=== PATIENT | female | born 1955 | race Caucasian/White ===

== ENCOUNTER 2016-09-06 02:26 | Emergency (ER) | payer SELFPAY | END 2016-09-06 03:18 | disposition home or self-care (01) | LOC: D.ER 02:26 | DX: S62.101A Fracture of unspecified carpal bone, right wrist, initial encounter for closed fracture (principal); W19.XXXA Unspecified fall, initial encounter; Y93.89 Activity, other specified; Y92.89 Other specified places as the place of occurrence of the external cause; F17.200 Nicotine dependence, unspecified, uncomplicated ==

== ENCOUNTER 2016-09-29 05:12 | Day surgery (SDC) | payer SELFPAY ==
[2016-09-28 12:19] LABS: HEMOGLOBIN 13.9 g/dL (12-16); MCH 27.7 pg (26.0-34.0); MCHC 33.1 g/dL (31.0-37.0); MCV 83.8 fL (80.0-100.0); MEAN PLATELET VOLUME 10.4 fL (7.4-10.4); RBC 5.01 10x6/uL (4.00-5.40); RDW 14.8 % (11.5-14.5); WBC 8.5 10x3/uL (4.8-10.8)
[~2016-09-29] VITALS: Ht 170.2 cm; Wt 54.4 kg
[~2016-09-29 05:12] MED LIST: ADVIL200 MG PO; DILAUDID2 MG PO
[2016-09-29 07:33] VITALS: Ht 170.2 cm; Wt 54.4 kg
--- NOTE | 2016-09-29 08:03 | NUR ---
0745- DR. JASON NOTIFIED OF ELEVATED BP, ORDERS RECEIVED. WILL MONITOR AFTER MEDICATION ADMINISTRATION.
--- NOTE | 2016-09-29 08:17 | NUR ---
0805-BP 185/106 DR JASON NOTIFIED NEW ORDER RECEIVED FOR 10 MG OF HYDRALAZINE IV NOW.
[2016-09-29] MEDS ORDERED: MEPERIDINE HCL50 MG PO (10:29)
--- NOTE | 2016-09-29 11:54 | NUR ---
IV DC WITH CATHER TIP INTACT
== END 2016-09-29 12:22 | disposition home or self-care (01) ==
LOC: D.OPS 05:12 → D.PAN 08:45 → D.OPS 08:50
PROVIDERS: Anesthesiology
DX: S52.501A Unspecified fracture of the lower end of right radius, initial encounter for closed fracture (principal)

== ENCOUNTER 2018-12-20 12:43 | Emergency (ER) | payer BC ==
[~2018-12-20] VITALS: Ht 170.2 cm; Wt 53.6 kg
[~2018-12-20 12:43] MED LIST changes: +MEPERIDINE HCL50 MG PO
[2018-12-20 12:46] VITALS: Ht 170.2 cm; Wt 53.6 kg
[2018-12-20 15:46] LABS: BASOPHILS 0.1 % (0-2); EOSINOPHILS 0.6 % (0-7); HEMATOCRIT 36.7 % (36.0-48.0); IMMATURE GRANULOCYTES 0.2 % (0-5); LYMPHOCYTES 14.7 % (15-50); MCH 25.2 pg (26.0-34.0); MCHC 32.7 g/dL (31.0-37.0); MCV 77.1 fL (80.0-100.0); MEAN PLATELET VOLUME 9.8 fL (7.4-10.4); MONOCYTES 5.9 % (2-11); NEUTROPHILS 78.5 % (40-80); PLATELET COUNT 190 10x3/uL (130-400); RBC 4.76 10x6/uL (4.00-5.40); RDW 15.4 % (11.5-14.5); WBC 9.8 10x3/uL (4.8-10.8)
[2018-12-20 16:13] LABS: ALBUMIN 3.4 g/dL (3.4-5.0); ALKALINE PHOSPHATASE 106 U/L (46-116); ALT (SGPT) 21 U/L (10-68); BILIRUBIN - TOTAL 0.23 mg/dL (0.2-1.3); CALC OSMOLALITY 285 mosm/kg (275-300); CALCIUM 8.6 mg/dL (8.5-10.1); CARBON DIOXIDE 26.6 mmol/L (21.0-32.0); CHLORIDE - SERUM 106 mmol/L (98-107); CREATININE - SERUM 0.8 mg/dL (0.6-1.3); GLUCOSE 119 mg/dL (74-106); POTASSIUM - SERUM 3.7 mmol/L (3.5-5.1); PROTEIN - SERUM 7.8 g/dL (6.4-8.2); SODIUM 142 mmol/L (136-145); UREA NITROGEN 17 mg/dL (7-18); eGFR NON AFRICAN AMERICAN 77 mL/min (90-120)
[2018-12-20 16:22] LABS: PRO BNP 343 pg/mL (0-125); THYROID STIMULATING HORMONE 2.12 uIU/mL (0.36-3.74); TROPONIN-I < 0.017 ng/mL (0.000-0.060)
[2018-12-20 16:25] LABS: APTT 28.8 SECONDS (22.8-39.4); INR 1.08 (0.85-1.17); PROTIME 13.5 SECONDS (11.6-15.0)
[2018-12-20 20:27] VITALS: BP 134/78
== END 2018-12-20 20:27 | disposition short-term general hospital (02) ==
LOC: D.ER 12:43
PROVIDERS: Family Medicine
DX: S81.852A Open bite, left lower leg, initial encounter (principal); S01.05XA Open bite of scalp, initial encounter; W54.0XXA Bitten by dog, initial encounter; Y93.89 Activity, other specified; Y92.89 Other specified places as the place of occurrence of the external cause; S82.441A Displaced spiral fracture of shaft of right fibula, initial encounter for closed fracture; S82.241A Displaced spiral fracture of shaft of right tibia, initial encounter for closed fracture; W18.30XA Fall on same level, unspecified, initial encounter